=== PATIENT | male | born 1960 | race Caucasian/White ===

== ENCOUNTER 2016-06-20 11:13 | Emergency (ER) | payer OTHER ==
[~2016-06-20] VITALS: Ht 175.3 cm; Wt 99.6 kg
[~2016-06-20 11:13] MED LIST: IBUP-1050 PO; LISI-461 PO
[2016-06-20 11:17] VITALS: BP 151/96; PULSE 97; TEMP 36.7; O2SAT 98; Ht 175.3 cm; Wt 99.6 kg
--- NOTE | 2016-06-20 11:38 | EMERGENCY ROOM VISIT NOTE ---
History First contact with patient: 11:19 Chief Complaint: RASH Stated Complaint: RASH History of Present Illness The patient is a 55 year old male who presents to the Emergency Room with complaints of an itchy red rash on his right thigh that has been present for the past 7-10 days. The patient reports that his pocketknife and keys in his right pocket are irritating his thigh. He did put some skin moisturizer on the rash, and it did improve. The patient reports that while at work today, he scratched his leg and it became painful. He presents for further evaluation. The patient reports that his insurance recently switched to [facility] insurance. He went to his new PCP's clinic this morning, and they told him that they could not get him into the office for an appointment today. He elected to come to the emergency department instead. He currently denies any pain. Review of Systems 6 system review was performed and was negative except for pertinent positives and negatives as indicated in history of present illness Past Medical/Surgical History Medical Problems: (1) Benign hypertension (2) Callus of foot (3) Callus of foot (4) Pain, dental (5) Sinusitis Family History FH: cancer FH: heart disease FH: hypertension Social History Smoking Status: Former Smoker Alcohol Use: none Marital Status: Occupation Status: employed Current/Historical Medications Scheduled Lisinopril (Zestril), 10 MG PO DAILY Allergies Coded Allergies: Ciprofloxacin (Verified Allergy, Unknown, UNKNOWN, 06/20/16) INFO FROM [facility] [place] Sulfamethoxazole w/Trimethoprim (Verified Allergy, Unknown, GENERALIZED ITCHING, 06/20/16) Physical Exam Vital Signs Date Time Temp Pulse Resp B/P Pulse Ox O2 Delivery O2 Flow Rate FiO2 06/20/16 11:17 36.7 97 18 151/96 98 Room Air Physical Exam CONSTITUTIONAL: Healthy and well nourished. Alert and oriented X 3 with positive affect. HEENT: Normocephalic, atraumatic. Pupils equal, round and reactive. NECK: Full active range of motion without discomfort. RESPIRATORY: Clear to auscultation bilaterally with no wheezing, crackles, rhonchi or stridor. CARDIOVASCULAR: Regular rate and rhythm with no murmurs, rubs or gallops. MUSCULOSKELETAL: Full range of motion of all joints without discomfort. INTEGUMENTARY: Examination of the right anterior mid thigh shows an area of erythematous raised papules without evidence for pustules, vesicles, crusting, lichenification, secondary infection or excoriation. It blanches with pressure. There is minimal scaling. The patient has no other rash on the body. NEUROLOGIC: No focal neurologic deficits noted. Medical Decision & Procedures ED Course Patient history and physical exam were performed. Nurse's notes were reviewed. Vital signs were reviewed, showing a blood pressure 151/96. The patient is afebrile. The patient was advised that the appearance of the rash is consistent with eczema. He was encouraged to move his pocket tools to another pocket, or apply an Brian wrap to the thigh to avoid irritation of the rash. Was given instructions to avoid rub drying after his showers, and use a good skin moisturizer right after showering. He may also apply hydrocortisone 1% cream twice daily to the rash over the next week. He was encouraged to follow-up with his new PCP if the rash does not improve over the next 2 weeks. Return to the emergency department for significant worsening/providing rash, fever, blistering or other concerning symptoms. The patient was happy with plan of care, and voiced understanding of all discharge instructions. Medical Decision Impression Primary Impression: Eczema Departure Information Dispostion Home / Self-Care Forms HOME CARE DOCUMENTATION FORM, IMPORTANT VISIT INFORMATION Patient Instructions A Signature Page, My [facility], ED Dermatitis Atopic Eczema Additional Instructions After showering, pat dry instead of rubbing yourself dry. While skin is moist, apply a skin moisturizer. Try applying hydrocortisone 1% cream twice daily to the rash. Darline remove the contents of your right pocket to the left, or wrap an Brian wrap around the thigh to prevent irritation of the rash. Follow-up with your family doctor if the rash does not improve over the next 2 weeks.
== END 2016-06-20 11:50 | disposition home or self-care (01) ==
LOC: C.EDB 11:14 → C.EDD 11:50
DX: L30.9 Dermatitis, unspecified (principal); I10 Essential (primary) hypertension; Z79.899 Other long term (current) drug therapy; Z87.891 Personal history of nicotine dependence; Z88.1 Allergy status to other antibiotic agents; Z88.2 Allergy status to sulfonamides

== ENCOUNTER 2016-08-21 06:54 | Emergency (ER) | payer OTHER ==
[~2016-08-21] VITALS: Ht 177.8 cm; Wt 101.6 kg
[~2016-08-21 06:54] MED LIST changes: -IBUP-1050 PO
[2016-08-21 06:57] VITALS: BP 155/101; PULSE 67; TEMP 37; O2SAT 98; Ht 177.8 cm; Wt 101.6 kg
[2016-08-21] MEDS ORDERED: MELO7.5T5 PO (07:22)
--- NOTE | 2016-08-24 16:07 | EMERGENCY ROOM VISIT NOTE ---
ED Visit Note First contact with patient: 07:05 CHIEF COMPLAINT: Nasal congestion, cough HISTORY of present illness: This 55-year-old male presents the ER with chief complaint of nasal congestion, left ear pain, irritated throat and cough since Thursday. The patient states that his throat is just irritated when he coughs or sneezes. He is able to swallow fluids without difficulty. He does admit to postnasal drainage. The patient also admits to a lot of congestion in his nose. He is coughing secondary to the postnasal drainage. The patient denies any fever, chest pain, chest tightness diffuse body aches. The patient states he did not know what to take since he is on medicine for his blood pressure and is also on Modic for his foot. He tried to get in with his family physician but they were not any at this morning when he tried to call the office. REVIEW OF SYSTEMS: 6 system review was performed and was negative unless stated otherwise in history of present illness. PMH: The patient is healthy; hypertension SOCIAL HISTORY: Patient lives with his . The patient denies any tobacco or alcohol use. PHYSICAL EXAM: Vital Signs were reviewed: Temperature 37.0, blood pressure 155/ 101, pulse 67, respiratory rate 18 Reviewed Nurse's notes and agree. Oxygen saturation is 98 % on room air which is normal . GENERAL: 55-year-old male appears in no acute distress. MENTAL STATUS: Alert, oriented, coherent. EARS: Canals clear. TMs good light reflex, no erythema or fluid level noted. NOSE: Nasal mucosa with moderate erythema engorgement. PHARYNX: No erythema, no edema noted. No exudate noted. Airway is adequate. NECK: Supple, non-tender. No lymphadenopathy noted. LUNGS: Clear to auscultation without wheezes rales or rhonchi. CARDIAC: Regular rate and rhythm without murmur. SKIN: No rashes noted. DIAGNOSIS: Viral upper respiratory infection DISCHARGE INSTRUCTIONS: Tylenol every 6 hours as needed for fever or pain. Recommend [id number] Coricidin HBP as directed on the label. Also recommend jatq-bny-kxdofxp nasal decongestant such as Flonase, Nasonex or Nasacort. Use this for at least 7 days as directed on the label. If symptoms are not improving by Thursday, follow-up with your family physician. Patient condition was stable. Please see Emergency Department Medical Record for additional patient information; this may include discharge diagnosis, interpretation of EKG, laboratory, and/or radiologic studies, Emergency Department course, etc. Problem List Medical Problems: (1) Benign hypertension Status: Chronic (2) Callus of foot Status: Resolved (3) Callus of foot Status: Resolved (4) Pain, dental Status: Resolved (5) Sinusitis Status: Resolved Current/Historical Medications Scheduled Lisinopril (Zestril), 10 MG PO DAILY Meloxicam (Mobic), 1 MG PO DAILY Allergies Coded Allergies: Ciprofloxacin (Verified Allergy, Unknown, UNKNOWN, 08/21/16) [place] [facility] [place]ulfamethoxazole w/Trimethoprim (Verified Allergy, Unknown, GENERALIZED ITCHING, 08/21/16) Vital Signs Date Time Temp Pulse Resp B/P Pulse Ox O2 Delivery O2 Flow Rate FiO2 08/21/16 06:57 37.0 67 18 155/101 98 Room Air Departure Information Impression Primary Impression: Upper respiratory infection Dispostion Home / Self-Care Condition GOOD Referrals No Doctor, Assigned (PCP) Forms HOME CARE DOCUMENTATION FORM, IMPORTANT VISIT INFORMATION Patient Instructions [facility] [employer] Additional Instructions Tylenol every 6 hours as needed for fever or pain. Recommend [id number]-wbmmxor Coricidin HBP as directed on the label. Also recommend vlzg-zhu-crwtucy nasal decongestant such as Flonase, Nasonex or Nasacort. Use this for at least 7 days as directed on the label. If symptoms are not improving by Thursday, follow- up with your family physician. Problem Qualifiers Primary Impression: Upper respiratory infection URI type: acute nasopharyngitis (common cold) Qualified Codes: J00 - Acute nasopharyngitis [common cold]
== END 2016-08-21 07:38 | disposition home or self-care (01) ==
LOC: C.EDB 06:55
DX: J06.9 Acute upper respiratory infection, unspecified (principal); I10 Essential (primary) hypertension; Z79.899 Other long term (current) drug therapy; Z88.2 Allergy status to sulfonamides

== ENCOUNTER 2016-10-05 18:06 | Emergency (ER) | payer OTHER ==
[~2016-10-05] VITALS: Ht 177.8 cm; Wt 99.7 kg
[~2016-10-05 18:06] MED LIST changes: +MELO7.5T5 PO
[2016-10-05 18:20] VITALS: TEMP 37; Ht 177.8 cm; Wt 99.7 kg
--- NOTE | 2016-10-05 18:40 | EMERGENCY ROOM VISIT NOTE ---
History First contact with patient: 18:23 Chief Complaint: FINGER PAIN Stated Complaint: R INDEX FINGER SWOLLEN History of Present Illness The patient is a 55 year old male who presents to the Emergency Room via private vehicle with complaints of "right index finger swollen ankle. The patient states that he works at the [employer], and last week his right index finger began to swell. He notes minimal pain at rest, but 5/10 pain when he presses at the base of the right second digit. He does not have any known injury during work. He is right-handed. He denies any difficulty with range of motion. He denies any numbness or tingling Review of Systems A complete 6-point Review of Systems was discussed with the patient, with pertinent positives and negatives listed in the History of Present Illness. All remaining Review of Systems questions can be considered negative unless otherwise specified. Past Medical/Surgical History Medical Problems: (1) Benign hypertension (2) Callus of foot (3) Callus of foot (4) Pain, dental (5) Sinusitis Family History FH: cancer FH: heart disease FH: hypertension Social History Smoking Status: Never Smoker Alcohol Use: none Marital Status: Occupation Status: employed Current/Historical Medications Scheduled Lisinopril (Zestril), 10 MG PO DAILY Allergies Coded Allergies: Ciprofloxacin (Verified Allergy, Unknown, UNKNOWN, 10/05/16) [place] [facility] [place] Sulfamethoxazole w/Trimethoprim (Verified Allergy, Unknown, GENERALIZED ITCHING, 10/05/16) Physical Exam Vital Signs Date Time Temp Pulse Resp B/P Pulse Ox O2 Delivery O2 Flow Rate FiO2 10/05/16 19:30 88 16 120/71 96 Room Air 10/05/16 18:20 37.0 101 16 126/86 94 Room Air Physical Exam VITAL SIGNS - Vital signs and nursing notes were reviewed. GENERAL -55-year-old male appearing his stated age who is in no acute distress. Communicates well with provider and answers questions appropriately. SKIN - Without rashes. There is slight erythema over the dorsal aspect of the right second digit. There is edema noted at the base of the right second digit. No breaks in the integument. EXTREMITIES - No clubbing or peripheral cyanosis. There is skin changes as noted above. There is tenderness to palpation overlying the space between the right second PIP and MCP joint. There is no bony abnormality noted. There is edema of this region. Slight erythema on the dorsal aspect of the proximal right second digit. He is neurovascularly intact in this region. Medical Decision & Procedures ER Provider Diagnostic Interpretation: RIGHT SECOND FINGER 3 VIEWS HISTORY: Right index finger edema, pain Right COMPARISON: None. FINDINGS: There is no fracture or dislocation. Mild soft tissue swelling. No radiopaque foreign bodies. No erosions identified. IMPRESSION: Mild soft tissue swelling. No fractures. Electronically signed by: Sam Guerrero M.D. 10/05/2016 6:56 PM Dictated Date/Time: 10/05/2016 6:55 PM Medical Decision Patient was seen and evaluated as above. After obtaining a thorough history of physical examination radiograph was obtained of the right second digit. There is no evidence of direct trauma. I suspect the patient has overuse of this region and is developing a potential synovitis or tenosynovitis. It is likely that the patient has experienced this from repetitive grabbing, flexion/ extension motion at his occupation. 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 There is no evidence of cellulitis and I suspect the slight erythema and edema is secondary to the inflammation of the tendon sheath. He is recommended to take anti-inflammatories such as ibuprofen. He was provided with a finger splint to help immobilize the region and allow the swelling to diminish. He is a follow- up with his family doctor orthopedic doctor following today's visit. He was educated upon worrisome symptoms which to return, educated upon management, had questions answered prior to discharge and was discharged home in good condition. In the evaluation and treatment of this patient, the following differential diagnoses were considered: Finger Fracture, Finger Dislocation, cellulitis, Genet synovitis Finger Sprain, Finger Contusion, Jersey Finger, or Mallet Finger among others. Impression Primary Impression: Finger pain, right Departure Information Dispostion Home / Self-Care Condition GOOD Referrals Francisco J Jenkins M.D. (PCP) Sandoval Ny M.D. Patient Instructions My [facility] Additional Instructions You have been treated in the Emergency Department for right index finger pain. For pain control, you can use the following piyr-vuj-qfdyxns medicines: - Regular strength (200 mg/tab) Advil (ibuprofen) 1-2 tabs every 4-6 hours as needed. Do not exceed a dose of 3200 mg per day. If this is a recent injury (<24 hrs), ice can be applied to the area of pain for the first 3 days to help decrease pain and inflammation. You have been provided the number for an Orthopaedic Surgeon. You should call this number as soon as possible to establish a follow-up visit from today's Emergency Department visit. (Yanely) Keep the brace/splint in place until evaluated by Orthopedics. Return to the Emergency Department if your current symptoms worsen despite treatment course outlined above, or if you develop any of the following symptoms : intractable pain despite aforementioned treatment course or new onset of numbness or tingling of the fingers. Please return to the emergency department with any new/concerning symptoms.
--- NOTE | 2016-10-05 18:58 | DIAGNOSTIC IMAGING REPORT ---
RIGHT SECOND FINGER 3 VIEWS HISTORY: Right index finger edema, pain Right COMPARISON: None. FINDINGS: There is no fracture or dislocation. Mild soft tissue swelling. No radiopaque foreign bodies. No erosions identified. IMPRESSION: Mild soft tissue swelling. No fractures. Electronically signed by: Sam Guerrero M.D. 10/05/2016 6:56 PM Dictated Date/Time: 10/05/2016 6:55 PM
[2016-10-05 19:30] VITALS: BP 120/71; PULSE 88; O2SAT 96
== END 2016-10-05 19:40 | disposition home or self-care (01) ==
LOC: C.EDB 18:08 → C.EDD 19:40
DX: M79.644 Pain in right finger(s) (principal); I10 Essential (primary) hypertension; Z82.49 Family history of ischemic heart disease and other diseases of the circulatory system; Z79.899 Other long term (current) drug therapy

== ENCOUNTER 2016-10-20 15:44 | Emergency (ER) | payer OTHER ==
[~2016-10-20] VITALS: Ht 180.3 cm; Wt 101.4 kg
[~2016-10-20 15:44] MED LIST changes: -MELO7.5T5 PO
[2016-10-20 15:48] VITALS: BP 136/91; PULSE 89; TEMP 36.9; O2SAT 97; Ht 180.3 cm; Wt 101.4 kg
[2016-10-20] MEDS ORDERED: CLR10 PO (15:59)
--- NOTE | 2016-10-20 16:37 | DIAGNOSTIC IMAGING REPORT ---
(GASTROGRAFIN SWALLOW) ESOPHAGUS CLINICAL HISTORY: pain when swallowing/feels like something stuck COMPARISON STUDY: None FLUOROSCOPY TIME: 48 seconds. 6 fluoroscopic spot images were acquired.. FINDINGS: The patient swallowed Gastrografin. There were no strictures. There is minimal irregularity of the esophagogastric junction without definite evidence of extravasation. Additional imaging with barium was felt to be the test of choice. The patient refused to drink additional liquid. A CT scan is therefore recommended in follow-up. IMPRESSION: 1. Incomplete study. Minimal irregularity of the esophagogastric junction on Gastrografin swallowing. 2. No evidence of myah extravasation 3. The patient refused additional imaging with barium 4. A CT scan of the chest is recommended in follow-up Electronically signed by: Andrew Kirby M.D. 10/20/2016 4:34 PM Dictated Date/Time: 10/20/2016 4:31 PM
--- NOTE | 2016-10-20 18:36 | EMERGENCY ROOM VISIT NOTE ---
History First contact with patient: 15:53 Chief Complaint: FOOD BOLUS Stated Complaint: THROAT-POSSIBLY SOMETHING STUCK IN THROAT Nursing Triage Summary: "Every once in a while I feel like I have something stuck in my throat" sx started last night "Last night I was eating chips and I don't know if it scratched my throat or what" Pt able to eat/drink and swallow saliva History of Present Illness The patient is a 55 year old male who presents to the Emergency Room with complaints of intermittent feeling of something being stuck in his throat with associated pain. The patient states that he ate potato chips right before going to bed last evening. Ever since he woke up this morning he has the symptoms as stated above. The patient denies any abdominal pain, nausea, vomiting. The patient denies any hemoptysis, shortness of breath or cough. 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 Review of Systems 6 system review was performed and was negative unless stated otherwise in history of present illness. Past Medical/Surgical History Medical Problems: (1) Benign hypertension (2) Callus of foot (3) Callus of foot (4) Pain, dental (5) Sinusitis Family History FH: cancer FH: heart disease FH: hypertension Social History Smoking Status: Never Smoker Alcohol Use: none Marital Status: Occupation Status: employed Current/Historical Medications Scheduled Lisinopril (Zestril), 10 MG PO DAILY Loratadine (Claritin), 10 MG PO DAILY Allergies Coded Allergies: Ciprofloxacin (Verified Allergy, Unknown, UNKNOWN, 10/20/16) [place] [facility] [place]amethox[place] w/Trimethoprim (Verified Allergy, Unknown, GENERALIZED ITCHING, 10/20/16) Physical Exam Vital Signs Date Time Temp Pulse Resp B/P Pulse Ox O2 Delivery O2 Flow Rate FiO2 10/20/16 15:48 36.9 89 18 136/91 97 Room Air Physical Exam GENERAL: 55-year-old white male appears in no acute distress. MENTAL Status: Patient is alert and oriented 3. PHARYNX: No erythema or edema noted. No foreign body noted in posterior pharynx. No bleeding noted. NECK: Supple, no lymphadenopathy noted. No carotid bruits noted. LUNGS: Clear auscultation without wheezes rales or rhonchi. CARDIAC: Regular rate and rhythm without murmur. Pulses is full and equal throughout. ABDOMEN: Positive bowel sounds all 4 quadrants. Soft, nontender to palpation without organomegaly or masses. Medical Decision & Procedures ER Provider Diagnostic Interpretation: (GASTROGRAFIN SWALLOW) ESOPHAGUS CLINICAL HISTORY: pain when swallowing/feels like something stuck COMPARISON STUDY: None FLUOROSCOPY TIME: 48 seconds. 6 fluoroscopic spot images were acquired.. FINDINGS: The patient swallowed Gastrografin. There were no strictures. There is minimal irregularity of the esophagogastric junction without definite evidence of extravasation. Additional imaging with barium was felt to be the test of choice. The patient refused to drink additional liquid. A CT scan is therefore recommended in follow-up. IMPRESSION: 1. Incomplete study. Minimal irregularity of the esophagogastric junction on Gastrografin swallowing. 2. No evidence of myah extravasation 3. The patient refused additional imaging with barium 4. A CT scan of the chest is recommended in follow-up Electronically signed by: Andrew Kirby M.D. 10/20/2016 4:34 PM Dictated Date/Time: 10/20/2016 4:31 PM ED Course The patient was evaluated. I called the radiologist to see if they would do a Gastrografin swallow. They agreed to do the study. The patient did not complete the exam but there was an abnormality noted at the gastroesophageal junction. Since the patient would not complete the study the radiologist recommended a CT of the chest without IV contrast. The patient was informed of our treatment plan. The patient refused the CT scan. I discussed all the patient's risks including with the patient. He signed out AMA. Medical Decision Differential diagnosis include esophageal irritation, tear of the esophagus, small abrasion of the esophagus. Due to the slight abnormality noted on the Gastrografin swallow and the patient unwilling to complete the test a CT which would be less invasive was recommended but the patient refused. Impression Primary Impression: Dysphagia Departure Information Dispostion Against Medical Advice Referrals Francisco J Jenkins M.D. (PCP) Forms HOME CARE DOCUMENTATION FORM, IMPORTANT VISIT INFORMATION, WORK / SCHOOL INSTRUCTIONS Patient Instructions My [facility] [employer] Additional Instructions You signed out AGAINST MEDICAL ADVICE from the emergency room today. Risks were explained to you and you signed a form recognizing all risks including if you leave the ER today without further testing. Problem Qualifiers Primary Impression: Dysphagia Dysphagia type: unspecified Qualified Codes: R13.10 - Dysphagia, unspecified
== END 2016-10-20 17:03 | disposition left against medical advice (07) ==
LOC: C.EDB 15:45 → C.EDD 17:03
DX: R13.10 Dysphagia, unspecified (principal); I10 Essential (primary) hypertension; Z82.49 Family history of ischemic heart disease and other diseases of the circulatory system

== ENCOUNTER 2016-11-10 08:28 | Emergency (ER) | payer OTHER ==
[~2016-11-10] VITALS: Ht 177.8 cm; Wt 100.6 kg
[~2016-11-10 08:28] MED LIST changes: +CLR10 PO
[2016-11-10 08:33] VITALS: TEMP 36.8; Ht 177.8 cm; Wt 100.6 kg
[2016-11-10] MEDS ORDERED: CLR10 PO (09:12)
--- NOTE | 2016-11-10 09:13 | EMERGENCY ROOM VISIT NOTE ---
History First contact with patient: 08:38 Chief Complaint: EAR PAIN Stated Complaint: EAR ACHE/SINUS History of Present Illness The patient is a 55 year old male who presents to the Emergency Room with complaints of ear pain. 3 days ago the patient began having left ear pain and also sinus pain above his left eye. The discomfort is a 2/10, intermittent, and in the superior nasal region of the orbit. He has also had discomfort at the anterior aspect of the ear that is also intermittent. He denies any fevers, congestion, headaches, difficulties hearing, vision changes, nausea, or dizziness. He denies any drainage from the ears. He appreciates that he had similar complaints a few years ago and was started on Claritin that resolved his symptoms and he has since stopped taking the medication. He has been taking Ibuprofen that has provided symptomatic relief in the meantime. Review of Systems See HPI for pertinent positives and negatives. A total of ten systems were reviewed and were otherwise negative. Past Medical/Surgical History Medical Problems: (1) Benign hypertension (2) Callus of foot (3) Callus of foot (4) Pain, dental (5) Sinusitis Family History FH: cancer FH: heart disease FH: hypertension Social History Smoking Status: Former Smoker Alcohol Use: none Marital Status: Occupation Status: employed Current/Historical Medications Scheduled Lisinopril (Zestril), 10 MG PO DAILY Allergies Coded Allergies: Ciprofloxacin (Verified Allergy, Unknown, UNKNOWN, 11/10/16) [place] [facility] [place]amethox[place] w/Trimethoprim (Verified Allergy, Unknown, GENERALIZED ITCHING, 11/10/16) Physical Exam Vital Signs Date Time Temp Pulse Resp B/P Pulse Ox O2 Delivery O2 Flow Rate FiO2 11/10/16 08:33 36.8 76 15 136/96 99 Room Air Physical Exam GENERAL: Awake, alert, well-appearing, in no distress HENT: Normocephalic, atraumatic. Oropharynx unremarkable. TM exam reveals no acute abnormalities. No erythema over the external ear canal. EYES: Normal conjunctiva. Sclera non-icteric. NECK: Supple. No nuchal rigidity. Trachea midline. RESPIRATORY: Clear to auscultation. Good inspiratory effort. CARDIAC: Regular rate, normal rhythm. Extremities warm and well perfused. Pulses equal. ABDOMEN: Soft, non-distended. No tenderness to palpation. No rebound or guarding. No masses. NEURO: Normal sensorium. No sensory or motor deficits noted. SKIN: No rash or jaundice noted. Medical Decision & Procedures Medical Decision Patient is a 55 year old male that presents with a 3 day history of sinus and left ear pain - Differential Diagnosis: Seasonal Allergies, Bacterial Sinusitis, Viral Sinusitis, Migraine Headache, Dental Pain - Physical exam and history point most likely to seasonal allergies, especially with the patient having a history of allergies - Patient given dose of Claritin 10mg Impression Primary Impression: Seasonal allergies Departure Information Dispostion Home / Self-Care Condition GOOD Prescriptions Loratadine (Claritin) 10 Mg Tab 10 MG PO DAILY for 30 Days, #30 TAB Prov: Phong Arauz .MD 11/10/16 Referrals Francisco J Jenkins M.D. (PCP) Patient Instructions My [facility] Problem Qualifiers Primary Impression: Seasonal allergies Allergic rhinitis trigger: unspecified Qualified Codes: J30.2 - Other seasonal allergic rhinitis
[2016-11-10] MEDS ORDERED: LORATADINE 10 MG TAB PO ONE (09:15)
[2016-11-10 09:47] VITALS: BP 125/88; PULSE 72; O2SAT 99
--- NOTE | 2016-11-10 13:37 | EMERGENCY ROOM VISIT NOTE ---
ED Visit Note First contact with patient: 08:36 Resident Physician Supervision Note: Dr. Phong Arauz was resident physician during care of patient. I separately evaluated patient and did history and exam. I discussed the case with the resident and generally agree with the findings and plan. 55 yr old male with eye irritation, runny nose and ear discomfort. Exam benign. Notes history of allergies with similar symptoms resolved with Claritin. Will restart allergy meds. No evidence of infection currently without evidence of sinus infection, and with only 2-3 days no indication for abx at this time. Diagnosis: Allergic Rhinitis Documented By: Joseph Moreau MD
== END 2016-11-10 09:50 | disposition home or self-care (01) ==
LOC: C.EDB 08:30 → C.EDA 09:50
DX: J30.2 Other seasonal allergic rhinitis (principal); H92.02 Otalgia, left ear; I10 Essential (primary) hypertension; Z79.899 Other long term (current) drug therapy; Z87.891 Personal history of nicotine dependence; Z82.49 Family history of ischemic heart disease and other diseases of the circulatory system